=== PATIENT | male | born 1945 | race Caucasian/White ===

== ENCOUNTER 2020-06-22 18:37 | Inpatient (IN) ==
[2020-06-22 20:48] LABS: BASOPHILS # (AUTO) 0.1 X10^3/uL (0.0-0.1); BASOPHILS % (AUTO) 0.6 % (0.2-1.0); EOSINOPHILS % (AUTO) 0.2 % (0.9-2.9); HEMATOCRIT 43.6 % (42.0-54.0); HEMOGLOBIN 14.6 g/dL (13.5-18.0); LYMPHOCYTES # (AUTO) 0.5 X10^3/uL (1.3-2.9); LYMPHOCYTES % (AUTO) 6.6 % (21.0-51.0); MEAN CORPUSCULAR HGB CONC 33.6 g/dL (33.0-35.0); MEAN CORPUSCULAR VOLUME 83.4 fL (80.0-100.0); MEAN PLATELET VOLUME 7.8 fL (7.4-11.0); MONOCYTES # (AUTO) 0.6 x10^3/uL (0.3-0.8); MONOCYTES % (AUTO) 7.8 % (0.0-13.0); NEUTROPHILS # (AUTO) 6.9 x10^3/uL (2.2-4.8); NEUTROPHILS % (AUTO) 84.8 % (42.0-75.0); PLATELET COUNT 149 X10^3/uL (150.0-450.0); RED BLOOD COUNT 5.23 X10^6/uL (4.7-6.0); RED CELL DISTRIBUTION WIDTH 16.6 % (11.6-16.5); WHITE BLOOD COUNT 8.1 X10^3/uL (3.6-10.0)
[2020-06-22 21:18] VITALS: BMI 23.4
[2020-06-22 21:32] LABS: CALCIUM 8.4 mg/dL (8.5-10.1); CARBON DIOXIDE 26.8 mmol/L (21-32); COR CA(FOR HYPOALB) 9.2 mg/dL (8.5-10.1); CREATININE 1.53 mg/dL (0.70-1.30); TOTAL PROTEIN 7.5 g/dL (6.4-8.2)
--- NOTE | 2020-06-22 21:35 | RAD ---
HISTORYpre op for hip fractureSTUDYCHEST, 1 VIEWCOMPARISONNoneFINDINGSThe trachea is midline. The cardiac silhouette is unremarkable . The lungs demonstrate a right infrahilar opacity with some linear associated scarring versus subsegmental atelectasis. This would be better evaluated with a contrast chest CT to exclude underlying mass or adenopathy. The bony thorax is unremarkable.IMPRESSIONRight infrahilar opacity as above. Follow-up chest CT with contrast would be of benefit for further assessmentElectronically signed by: KIESHA ANNE (Jun 22, 2020 21:34:54)
[2020-06-22] MEDS ORDERED: PHARMACY CONSULT LTC MEDICATIONS XX SCH (22:00)
[2020-06-23] LABS: BILIRUBIN,URINE NEGATIVE (NEGATIVE); BLOOD/HEMOGLOBIN,URINE 3+ (NEGATIVE); GLUCOSE, URINE NEGATIVE (NEGATIVE); KETONES,URINE 1+ (NEGATIVE); LEUKOCYTE ESTERASE ,URINE NEGATIVE (NEGATIVE); NITRITES,URINE NEGATIVE (NEGATIVE); PROTEIN,URINE 3+ (NEGATIVE); UROBILINOGEN,URINE NORMAL (NORMAL)
[2020-06-23 00:05] LABS: APPEARANCE,URINE CLEAR (CLEAR); COLOR,URINE DARK YELLOW (YELLOW)
[2020-06-23 00:18] LABS: BACTERIA,URINE 1+ /HPF (NEGATIVE); GRANULAR CASTS,URINE FEW /LPF (NEGATIVE); RBC,URINE 0-2 /HPF (0-3); SQUAMOUS EPITHELIAL CELL,UR NEGATIVE /HPF (NEGATIVE)
[2020-06-23 00:19] LABS: MUCUS,URINE MODERATE /HPF (NEGATIVE)
[2020-06-23 06:53] LABS: BASOPHILS % (AUTO) 0.4 % (0.2-1.0); HEMATOCRIT 41.8 % (42.0-54.0); LYMPHOCYTES # (AUTO) 0.6 X10^3/uL (1.3-2.9); LYMPHOCYTES % (AUTO) 8.3 % (21.0-51.0); MEAN CORPUSCULAR HEMOGLOBIN 27.9 pg (27.0-34.0); MEAN CORPUSCULAR HGB CONC 33.4 g/dL (33.0-35.0); MEAN CORPUSCULAR VOLUME 83.6 fL (80.0-100.0); MEAN PLATELET VOLUME 7.9 fL (7.4-11.0); MONOCYTES # (AUTO) 0.6 x10^3/uL (0.3-0.8); MONOCYTES % (AUTO) 9.3 % (0.0-13.0); NEUTROPHILS # (AUTO) 5.5 x10^3/uL (2.2-4.8); PLATELET COUNT 138 X10^3/uL (150.0-450.0); RED BLOOD COUNT 5.01 X10^6/uL (4.7-6.0); RED CELL DISTRIBUTION WIDTH 16.6 % (11.6-16.5); WHITE BLOOD COUNT 6.7 X10^3/uL (3.6-10.0)
[2020-06-23 07:12] LABS: ALBUMIN 2.9 g/dL (3.4-5.0); CALCIUM 8.1 mg/dL (8.5-10.1); CARBON DIOXIDE 25.8 mmol/L (21-32); CREATININE 1.48 mg/dL (0.70-1.30); TOTAL PROTEIN 7.2 g/dL (6.4-8.2)
[2020-06-23 09:08] LABS: HEMOGLOBIN A1C 6.8 %
--- NOTE | 2020-06-23 09:13 | CT ---
HISTORY:Right hip fractureStudy: CT of the right hip without contrastComparison: NoneTechnique: Multiple axial images were obtained without administration of IV contrast. Sagittal and coronal reformats were performed and reviewed. Dose reduction techniques including Automated Exposure Control (AEC) and adjustment of mA and kV were utilized.Findings:There is a subcapital fracture of the right femoral neck mild impaction. Femoroacetabular alignment is normal without dislocation. The visualized pelvic ring is intact. There is a Lynn catheter in place with decompressed urinary bladder. Mild soft tissue swelling lateral to the right hip joint without fluid collection or hematoma. No aggressive osseous lesion identified to suggest a pathologic fracture.IMPRESSION:1. Subcapital right femoral neck fracture with mild impaction.Electronically signed by: LAURA VILLAGRAN (Jun 23, 2020 09:11:49)
[2020-06-23 09:14] LABS: CKMB % 0.5 % (<4); CREATINE KINASE 224 Units/L (39-308); CREATINE KINASE MB < 1.0 ng/mL (0-4.0); TROPONIN I < 0.02 ng/mL (0-1.5)
[2020-06-23] MEDS ORDERED: NS 250 ML IV 250 ML IV ONE ×2 (10:08→15:50)
[2020-06-23 10:11] LABS: ABG BASE EXCESS 1.6 mmol/L (-2.0-2.0); ABG HCO3 23.9 mmol/L (22-26)
[2020-06-23] MEDS: ZINC SULFATE PO SCH ×2 (10:22→21:29)
[2020-06-23] MEDS: VITAMIN C PO SCH ×2 (10:22→21:28)
[2020-06-23] MEDS: OFIRMEV IV PRN (10:22)
[2020-06-23] MEDS: PLAQUENIL PO SCH ×3 (10:23→21:28)
[2020-06-23 10:45] LABS: ABG ALLEN TEST POS
--- NOTE | 2020-06-23 13:31 | DR.H&P ---
H&P - History & Physical for Day of: H&P Date: 06/22/20 - Chief Complaint Chief Complaint: RIGHT HIP FRACTURE - History of Present Illness History of Present Illness: PT IS 74 WM DIRECT ADMIT FROM [facility] WITH CO FALL WITH ACUTE RIGHT HIP FRACTURE. PT CO PAIN, CT HIP ON ADMISSION CONFIRMED FRACTURE. PT ADMITTED FOR ORTHO SURGICAL CONSULTATION. - Past Medical History Past Medical History: Anxiety, Arthritis, Dementia, Depression, Diabetes, Hypertension - Past Surgical History Surgical History: Unknown - Social History Does patient currently use any type of tobacco product: No Have you used tobacco products in the last 12 months: No Type of Tobacco Use: None Does any household member use tobacco: No Alcohol Use: None Drug Use: None - Medications Home Medications: No Known Drug Allergies Allergy (Verified 06/22/20 20:27) CONTINUE taking the following medications ascorbic acid (vitamin C) 1,000 mg PO BID 06/22/20 [History] atorvastatin [Lipitor] 20 mg PO HS 06/22/20 [History] azithromycin [Zithromax] 500 mg PO DAILY 06/22/20 [History] donepezil [Aricept] 10 mg PO HS 06/22/20 [History] famotidine [Pepcid] 20 mg PO BID 06/22/20 [History] fexofenadine [Erin Allergy] 180 mg PO DAILY 06/22/20 [History] glimepiride [Amaryl] 2 mg PO DAILY 06/22/20 [History] hydroxychloroquine [Plaquenil] 200 mg PO BID 06/22/20 [History] medroxyprogesterone [Provera] 10 mg PO DAILY 06/22/20 [History] mirtazapine [Remeron] 15 mg PO HS 06/22/20 [History] quetiapine [Seroquel] 50 mg PO BID 06/22/20 [History] zinc sulfate 220 mg PO BID 06/22/20 [History] - Review of Systems Constitutional: Weakness ENT: No Symptoms Reported Respiratory: No Symptoms Reported Cardiovascular: No Symptoms Reported. denies: Edema Gastrointestinal: No Symptoms Reported Genitourinary: Incontinence Musculoskeletal: Leg Pain Skin: No Symptoms Reported Neurological: No Symptoms Reported, Confusion (STABLE DEMENTIA) - Physical Exam Vital Signs: Temperature 100.3 F Pulse Rate [Left Radial] 97 Respiratory Rate 20 Blood Pressure [Left Arm] 156/81 O2 Sat by Pulse Oximetry 93 Oriented: Person Eyes: Normal Ear: Normal Nose: Normal Throat: Dry Respiratory: RLL Diminished, LLL Diminished Cardiovascular: Normal. negative: Edema : Normal Auscultation: Bowel Sounds: Normal Palpation: Normal Tenderness: Normal Skin: Decreased Turgur Musculoskeletal: Right, Hip, Tender Psychiatric: Normal Mood Description: Flat Speech Pattern: Clear, Inappropriate - Assessment/Plan (1) Closed right hip fracture Status: Acute Plan: ADMIT, NPO. PAIN CONTROL. COVID 19 ON ADMISSION, CXR AND EKG ON ADMISSION. IV HYDRATION, RESP CONSULT. ORTHO CONSULT (2) COVID-19 Status: Acute (3) Dementia Status: Acute (4) Hypertension Status: Acute - Allergies Allergies/Adverse Reactions: Allergies Allergy/AdvReac Type Severity Reaction Status Date / Time No Known Drug Allergies Allergy Verified 06/22/20 20:27
[2020-06-23] MEDS: ZITHROMAX INJ 500 MG VIAL 500 MG in NS 250 ML IV 250 ML IV SCH (15:39)
[2020-06-23] MEDS: SNACK - Diabetic Appropriate PO SCH (20:25)
[2020-06-23] MEDS: LIPITOR TAB 20 MG PO SCH (21:28)
[2020-06-24 06:42] LABS: BASOPHILS % (AUTO) 0.2 % (0.2-1.0); EOSINOPHILS # (AUTO) 0.1 x10^3/uL (0.0-0.2); EOSINOPHILS % (AUTO) 1.6 % (0.9-2.9); HEMATOCRIT 40.8 % (42.0-54.0); HEMOGLOBIN 13.7 g/dL (13.5-18.0); LYMPHOCYTES # (AUTO) 0.9 X10^3/uL (1.3-2.9); LYMPHOCYTES % (AUTO) 15.2 % (21.0-51.0); MEAN CORPUSCULAR HEMOGLOBIN 28.1 pg (27.0-34.0); MEAN CORPUSCULAR HGB CONC 33.7 g/dL (33.0-35.0); MEAN CORPUSCULAR VOLUME 83.4 fL (80.0-100.0); MEAN PLATELET VOLUME 8.1 fL (7.4-11.0); MONOCYTES # (AUTO) 0.6 x10^3/uL (0.3-0.8); MONOCYTES % (AUTO) 9.3 % (0.0-13.0); NEUTROPHILS # (AUTO) 4.4 x10^3/uL (2.2-4.8); NEUTROPHILS % (AUTO) 73.7 % (42.0-75.0); PLATELET COUNT 149 X10^3/uL (150.0-450.0); RED BLOOD COUNT 4.89 X10^6/uL (4.7-6.0); WHITE BLOOD COUNT 5.9 X10^3/uL (3.6-10.0)
[2020-06-24 06:57] LABS: ALANINE AMINOTRANSFERASE 25 Units/L (12-78); ALBUMIN 2.7 g/dL (3.4-5.0); ALKALINE PHOSPHATASE 76 Units/L (46-116); ASPARTATE AMINO TRANSFERASE 36 Units/L (15-37); BLOOD UREA NITROGEN 28 mg/dL (7-18); CALCIUM 8.3 mg/dL (8.5-10.1); CARBON DIOXIDE 27.8 mmol/L (21-32); CHLORIDE 104 mmol/L (98-107); COR CA(FOR HYPOALB) 9.3 mg/dL (8.5-10.1); COR NA(FOR HYPERGLY) 143 mmol/L (136-145); CREATININE 1.29 mg/dL (0.70-1.30); SODIUM 142 mmol/L (136-145); eGFR NON BLACK RACES 58 (>60)
[2020-06-24] MEDS: VITAMIN C PO SCH ×2 (09:40→20:54)
[2020-06-24] MEDS: ZINC SULFATE PO SCH ×2 (09:40→20:55)
[2020-06-24] MEDS: ZITHROMAX INJ 500 MG VIAL 500 MG in NS 250 ML IV 250 ML IV SCH (09:40)
[2020-06-24] MEDS: PLAQUENIL PO SCH ×2 (09:41→20:53)
[2020-06-24] MEDS ORDERED: LR 1000 ML IV 1,000 ML IV ONE (11:23)
[2020-06-24] MEDS ORDERED: DIPRIVAN VIAL ONE (11:24)
[2020-06-24] MEDS ORDERED: XYLOCAINE 2 % (PLAIN) ONE (11:24)
[2020-06-24] MEDS ORDERED: KETALAR ONE (11:24)
[2020-06-24] MEDS ORDERED: VERSED ONE (11:24)
[2020-06-24] MEDS ORDERED: XYLOCAINE 1 % (PLAIN) ONE (11:42)
[2020-06-24] MEDS ORDERED: BETADINE SOLN ONE (12:32)
[2020-06-24] MEDS ORDERED: DILAUDID INJ IVP PRN (13:02)
[2020-06-24] MEDS ORDERED: ZOFRAN INJ 4 MG VIAL IVP PRN (13:02)
[2020-06-24] MEDS ORDERED: BENADRYL INJ 50 MG VIAL IVP PRN (13:02)
[2020-06-24] MEDS ORDERED: NS IRRIGATION* 1,000 ML ONE (15:04)
[2020-06-24] MEDS: OFIRMEV IV PRN ×2 (15:40→20:55)
[2020-06-24] MEDS ORDERED: ZOSYN VIAL 3.375 GRAMS 3.375 G in NS 100 ML IV + SPIKE MINIBAG* 100 ML IV ONE (17:18)
[2020-06-24] MEDS ORDERED: ZOSYN VIAL 3.375 GRAMS IV ONE (18:19)
[2020-06-24] MEDS ORDERED: NS 100 ML IV + SPIKE MINIBAG* 100 ML IV ONE (18:20)
[2020-06-24] MEDS: SNACK - Diabetic Appropriate PO SCH (20:51)
[2020-06-24] MEDS: LIPITOR TAB 20 MG PO SCH (20:52)
[2020-06-25] MEDS ORDERED: NS 250 ML IV 250 ML IV ONE (05:36)
[2020-06-25 05:40] LABS: ABG ALLEN TEST POS; ABG BASE EXCESS 2.2 mmol/L (-2.0-2.0); ABG HCO3 24.7 mmol/L (22-26)
[2020-06-25] MEDS: OFIRMEV IV PRN ×2 (05:40→21:25)
--- NOTE | 2020-06-25 05:43 | RAD ---
HISTORYPNEUMONIASTUDYCHEST, 1 [id number]/24/2020FINDINGSThe trachea is midline. The cardiac silhouette is unremarkable. Right infrahilar opacity unchanged. There is now increased opacity within the right upper lobe. The left lung is clear. No pleural effusion or pneumothorax. The bony thorax is unremarkable.IMPRESSIONRight upper lobe infiltrate new from previous 06/22/2020.Right infrahilar opacity, unchangedElectronically signed by: Luke Patel (Jun 25, 2020 05:41:48)
[2020-06-25 06:31] LABS: BASOPHILS % (AUTO) 0.2 % (0.2-1.0); EOSINOPHILS % (AUTO) 0.1 % (0.9-2.9); HEMATOCRIT 37.7 % (42.0-54.0); HEMOGLOBIN 12.6 g/dL (13.5-18.0); LYMPHOCYTES # (AUTO) 0.6 X10^3/uL (1.3-2.9); LYMPHOCYTES % (AUTO) 9.2 % (21.0-51.0); MEAN CORPUSCULAR HEMOGLOBIN 27.7 pg (27.0-34.0); MEAN CORPUSCULAR HGB CONC 33.5 g/dL (33.0-35.0); MEAN CORPUSCULAR VOLUME 82.9 fL (80.0-100.0); MEAN PLATELET VOLUME 8.3 fL (7.4-11.0); MONOCYTES # (AUTO) 0.4 x10^3/uL (0.3-0.8); MONOCYTES % (AUTO) 6.1 % (0.0-13.0); NEUTROPHILS # (AUTO) 5.3 x10^3/uL (2.2-4.8); NEUTROPHILS % (AUTO) 84.4 % (42.0-75.0); PLATELET COUNT 179 X10^3/uL (150.0-450.0); RED BLOOD COUNT 4.54 X10^6/uL (4.7-6.0); RED CELL DISTRIBUTION WIDTH 16.8 % (11.6-16.5); WHITE BLOOD COUNT 6.3 X10^3/uL (3.6-10.0)
[2020-06-25 06:45] LABS: ALANINE AMINOTRANSFERASE 22 Units/L (12-78); ALBUMIN 2.6 g/dL (3.4-5.0); ALKALINE PHOSPHATASE 71 Units/L (46-116); ASPARTATE AMINO TRANSFERASE 30 Units/L (15-37); BLOOD UREA NITROGEN 22 mg/dL (7-18); CARBON DIOXIDE 23.4 mmol/L (21-32); CHLORIDE 106 mmol/L (98-107); COR CA(FOR HYPOALB) 9.1 mg/dL (8.5-10.1); COR NA(FOR HYPERGLY) 141 mmol/L (136-145); CREATININE 1.18 mg/dL (0.70-1.30); SODIUM 140 mmol/L (136-145); TOTAL PROTEIN 6.5 g/dL (6.4-8.2); eGFR NON BLACK RACES > 60 (>60)
[2020-06-25] MEDS ORDERED: REMDESIVIR (INVESTIGATIONAL DRUG GS-5734) 200 MG in NS 250 ML IV 250 ML IV NR (09:00)
[2020-06-25] MEDS: LOVENOX INJ 40 MG SYR SC SCH (10:20)
[2020-06-25] MEDS: ZINC SULFATE PO SCH ×2 (10:22→21:30)
[2020-06-25] MEDS: VITAMIN C PO SCH ×2 (10:22→21:30)
[2020-06-25] MEDS: PLAQUENIL PO SCH ×2 (10:23→21:30)
[2020-06-25] MEDS: ZITHROMAX INJ 500 MG VIAL 500 MG in NS 250 ML IV 250 ML IV SCH (10:38)
[2020-06-25] MEDS ORDERED: PROVENTIL NEB TX 0.083% 2.5MG/ 3ML NEB PRN (14:45)
[2020-06-25] MEDS ORDERED: PROVENTIL NEB TX 0.083% 2.5MG/ 3ML ONE (14:50)
[2020-06-25] MEDS ORDERED: MORPHINE SULFATE INJ 2 MG INJ ONE (17:36)
[2020-06-25] MEDS: MORPHINE SULFATE INJ 2 MG INJ IVP PRN (17:40)
[2020-06-25] MEDS: LIPITOR TAB 20 MG PO SCH (21:30)
[2020-06-25] MEDS: PROVENTIL NEB TX 0.083% 2.5MG/ 3ML NEB SCH (21:30)
[2020-06-25] MEDS: SNACK - Diabetic Appropriate PO SCH (21:30)
[2020-06-25] MEDS: NORCO 5/325 MG TAB PO PRN (21:32)
[2020-06-26 06:25] LABS: BASOPHILS % (AUTO) 0.4 % (0.2-1.0); EOSINOPHILS % (AUTO) 0.4 % (0.9-2.9); HEMATOCRIT 39.2 % (42.0-54.0); HEMOGLOBIN 13.1 g/dL (13.5-18.0); LYMPHOCYTES # (AUTO) 0.9 X10^3/uL (1.3-2.9); LYMPHOCYTES % (AUTO) 10.2 % (21.0-51.0); MEAN CORPUSCULAR HGB CONC 33.3 g/dL (33.0-35.0); MEAN CORPUSCULAR VOLUME 84.1 fL (80.0-100.0); MEAN PLATELET VOLUME 8.3 fL (7.4-11.0); MONOCYTES # (AUTO) 0.5 x10^3/uL (0.3-0.8); MONOCYTES % (AUTO) 5.6 % (0.0-13.0); NEUTROPHILS # (AUTO) 7.5 x10^3/uL (2.2-4.8); NEUTROPHILS % (AUTO) 83.4 % (42.0-75.0); PLATELET COUNT 191 X10^3/uL (150.0-450.0); RED BLOOD COUNT 4.66 X10^6/uL (4.7-6.0); RED CELL DISTRIBUTION WIDTH 16.7 % (11.6-16.5)
[2020-06-26 06:34] LABS: ALANINE AMINOTRANSFERASE 16 Units/L (12-78); ALBUMIN 2.5 g/dL (3.4-5.0); ALKALINE PHOSPHATASE 69 Units/L (46-116); ASPARTATE AMINO TRANSFERASE 37 Units/L (15-37); BLOOD UREA NITROGEN 21 mg/dL (7-18); CALCIUM 8.3 mg/dL (8.5-10.1); CARBON DIOXIDE 26.9 mmol/L (21-32); CHLORIDE 108 mmol/L (98-107); COR CA(FOR HYPOALB) 9.5 mg/dL (8.5-10.1); COR NA(FOR HYPERGLY) 145 mmol/L (136-145); CREATININE 1.23 mg/dL (0.70-1.30); SODIUM 144 mmol/L (136-145); TOTAL PROTEIN 6.8 g/dL (6.4-8.2); eGFR NON BLACK RACES > 60 (>60)
[2020-06-26] MEDS: MORPHINE SULFATE INJ 2 MG INJ IVP PRN (06:35)
[2020-06-26] MEDS: LOVENOX INJ 40 MG SYR SC SCH (06:35)
[2020-06-26] MEDS: OFIRMEV IV PRN ×2 (06:37→17:57)
[2020-06-26] MEDS: PROVENTIL NEB TX 0.083% 2.5MG/ 3ML NEB SCH ×4 (09:15→21:03)
[2020-06-26] MEDS: VITAMIN C PO SCH ×2 (09:30→20:45)
[2020-06-26] MEDS: PLAQUENIL PO SCH ×2 (09:30→20:45)
[2020-06-26] MEDS: ZITHROMAX INJ 500 MG VIAL 500 MG in NS 250 ML IV 250 ML IV SCH (09:30)
[2020-06-26] MEDS: REMDESIVIR (INVESTIGATIONAL DRUG GS-5734) 100 MG in NS 250 ML IV 250 ML IV SCH (09:30)
[2020-06-26] MEDS: ZINC SULFATE PO SCH ×2 (09:30→20:45)
[2020-06-26 10:44] LABS: ABG BASE EXCESS 2.2 mmol/L (-2.0-2.0); ABG HCO3 26.5 mmol/L (22-26)
[2020-06-26] MEDS: PEPCID TAB 20 MG PO SCH ×2 (11:50→20:45)
[2020-06-26] MEDS: SEROquel TAB 25 mg PO SCH ×2 (11:50→20:45)
[2020-06-26] MEDS: PROTONIX INJ 40 MG VIAL IVP SCH (11:50)
[2020-06-26] MEDS ORDERED: ARICEPT TAB 10 MG ONE (19:22)
[2020-06-26] MEDS: ARICEPT TAB 10 MG PO SCH (20:45)
[2020-06-26] MEDS: LIPITOR TAB 20 MG PO SCH (20:45)
[2020-06-26] MEDS: SNACK - Diabetic Appropriate PO SCH (22:48)
[2020-06-27 00:22] LABS: BILIRUBIN,URINE NEGATIVE (NEGATIVE); BLOOD/HEMOGLOBIN,URINE 5+ (NEGATIVE); GLUCOSE, URINE NEGATIVE (NEGATIVE); KETONES,URINE 3+ (NEGATIVE); LEUKOCYTE ESTERASE ,URINE 1+ (NEGATIVE); NITRITES,URINE NEGATIVE (NEGATIVE); PROTEIN,URINE 3+ (NEGATIVE); UROBILINOGEN,URINE NORMAL (NORMAL)
[2020-06-27 00:42] LABS: APPEARANCE,URINE CLEAR (CLEAR); COLOR,URINE YELLOW (YELLOW); RBC,URINE 30-50 /HPF (0-3)
[2020-06-27 00:43] LABS: BACTERIA,URINE 2+ /HPF (NEGATIVE); SQUAMOUS EPITHELIAL CELL,UR RARE /HPF (NEGATIVE)
[2020-06-27 05:33] LABS: BASOPHILS % (AUTO) 0.2 % (0.2-1.0); EOSINOPHILS % (AUTO) 0.4 % (0.9-2.9); LYMPHOCYTES # (AUTO) 1.1 X10^3/uL (1.3-2.9); LYMPHOCYTES % (AUTO) 13.1 % (21.0-51.0); MEAN CORPUSCULAR HGB CONC 33.4 g/dL (33.0-35.0); MEAN CORPUSCULAR VOLUME 83.8 fL (80.0-100.0); MEAN PLATELET VOLUME 8.7 fL (7.4-11.0); MONOCYTES # (AUTO) 0.5 x10^3/uL (0.3-0.8); MONOCYTES % (AUTO) 6.3 % (0.0-13.0); NEUTROPHILS # (AUTO) 6.7 x10^3/uL (2.2-4.8); PLATELET COUNT 231 X10^3/uL (150.0-450.0); RED CELL DISTRIBUTION WIDTH 17.3 % (11.6-16.5); WHITE BLOOD COUNT 8.4 X10^3/uL (3.6-10.0)
[2020-06-27 05:46] LABS: ALANINE AMINOTRANSFERASE 16 Units/L (12-78); ALBUMIN 2.3 g/dL (3.4-5.0); ALKALINE PHOSPHATASE 64 Units/L (46-116); ASPARTATE AMINO TRANSFERASE 35 Units/L (15-37); BLOOD UREA NITROGEN 24 mg/dL (7-18); CALCIUM 8.1 mg/dL (8.5-10.1); CARBON DIOXIDE 28.3 mmol/L (21-32); CHLORIDE 111 mmol/L (98-107); COR CA(FOR HYPOALB) 9.5 mg/dL (8.5-10.1); COR NA(FOR HYPERGLY) 148 mmol/L (136-145); CREATININE 1.09 mg/dL (0.70-1.30); SODIUM 146 mmol/L (136-145); TOTAL PROTEIN 6.3 g/dL (6.4-8.2); eGFR NON BLACK RACES > 60 (>60)
[2020-06-27] MEDS: LOVENOX INJ 40 MG SYR SC SCH (06:32)
[2020-06-27] MEDS ORDERED: MICRO K EXTEN CAP 10 MEQ PO PRN (06:42)
[2020-06-27] MEDS ORDERED: POTASSIUM CHL 40 MEQ/NS 0.45% 500 ML IV PRN (06:42)
[2020-06-27] MEDS ORDERED: K-RIDER 10 MEQ/NS 100 ML 10 MEQ/100 ML BAG IV PRN (06:42)
[2020-06-27] MEDS ORDERED: K-DUR TAB 20 MEQ PO PRN (06:42)
[2020-06-27] MEDS ORDERED: KLOR-CON PO PRN (06:42)
[2020-06-27] MEDS ORDERED: POTASSIUM CHLORIDE LIQ 20 MEQ UDC PO PRN (06:42)
[2020-06-27] MEDS ORDERED: POTASSIUM CHL 60 MEQ/NS 0.45% 500 ML IV PRN (06:42)
[2020-06-27] MEDS ORDERED: KLOR-CON ONE (07:20)
[2020-06-27] MEDS: ZINC SULFATE PO SCH ×2 (08:37→21:20)
[2020-06-27] MEDS: SEROquel TAB 25 mg PO SCH ×2 (08:38→21:19)
[2020-06-27] MEDS: PLAQUENIL PO SCH ×2 (08:38→21:21)
[2020-06-27] MEDS: ZITHROMAX INJ 500 MG VIAL 500 MG in NS 250 ML IV 250 ML IV SCH (08:38)
[2020-06-27] MEDS: REMDESIVIR (INVESTIGATIONAL DRUG GS-5734) 100 MG in NS 250 ML IV 250 ML IV SCH (08:38)
[2020-06-27] MEDS: VITAMIN C PO SCH ×2 (08:38→21:21)
[2020-06-27] MEDS: PROTONIX INJ 40 MG VIAL IVP SCH (08:39)
[2020-06-27] MEDS: PEPCID TAB 20 MG PO SCH ×2 (08:39→21:21)
[2020-06-27] MEDS: PROVENTIL NEB TX 0.083% 2.5MG/ 3ML NEB SCH ×4 (09:05→21:15)
[2020-06-27] MEDS ORDERED: NS 1/2 1000 ML IV 1,000 ML IV ONE (13:33)
[2020-06-27] MEDS: NS 1/2 1000 ML IV 1,000 ML IV SCH (16:02)
[2020-06-27] MEDS: NORCO 5/325 MG TAB PO PRN (18:25)
[2020-06-27] MEDS ORDERED: SEROquel TAB 25 mg PO ONE (19:49)
[2020-06-27] MEDS: SNACK - Diabetic Appropriate PO SCH (20:11)
[2020-06-27] MEDS: LIPITOR TAB 20 MG PO SCH (21:21)
[2020-06-27] MEDS: ARICEPT TAB 10 MG PO SCH (21:21)
[2020-06-28 06:13] LABS: BASOPHILS % (AUTO) 0.3 % (0.2-1.0); EOSINOPHILS # (AUTO) 0.2 x10^3/uL (0.0-0.2); EOSINOPHILS % (AUTO) 1.6 % (0.9-2.9); HEMATOCRIT 35.8 % (42.0-54.0); HEMOGLOBIN 12.1 g/dL (13.5-18.0); LYMPHOCYTES # (AUTO) 0.7 X10^3/uL (1.3-2.9); MEAN CORPUSCULAR HGB CONC 33.9 g/dL (33.0-35.0); MEAN CORPUSCULAR VOLUME 85.6 fL (80.0-100.0); MEAN PLATELET VOLUME 8.8 fL (7.4-11.0); MONOCYTES # (AUTO) 0.4 x10^3/uL (0.3-0.8); NEUTROPHILS % (AUTO) 87.1 % (42.0-75.0); PLATELET COUNT 288 X10^3/uL (150.0-450.0); RED BLOOD COUNT 4.18 X10^6/uL (4.7-6.0); RED CELL DISTRIBUTION WIDTH 16.9 % (11.6-16.5); WHITE BLOOD COUNT 10.3 X10^3/uL (3.6-10.0)
[2020-06-28 06:21] LABS: ALANINE AMINOTRANSFERASE 18 Units/L (12-78); ALBUMIN 2.4 g/dL (3.4-5.0); ALKALINE PHOSPHATASE 72 Units/L (46-116); ASPARTATE AMINO TRANSFERASE 35 Units/L (15-37); BLOOD UREA NITROGEN 25 mg/dL (7-18); CALCIUM 8.2 mg/dL (8.5-10.1); CARBON DIOXIDE 27.3 mmol/L (21-32); CHLORIDE 113 mmol/L (98-107); COR CA(FOR HYPOALB) 9.5 mg/dL (8.5-10.1); COR NA(FOR HYPERGLY) 151 mmol/L (136-145); CREATININE 1.09 mg/dL (0.70-1.30); SODIUM 149 mmol/L (136-145); TOTAL PROTEIN 6.4 g/dL (6.4-8.2); eGFR NON BLACK RACES > 60 (>60)
[2020-06-28] MEDS: LOVENOX INJ 40 MG SYR SC SCH (06:24)
[2020-06-28] MEDS: HumuLIN R SUBCUT PRN (06:25)
[2020-06-28] MEDS: ZITHROMAX INJ 500 MG VIAL 500 MG in NS 250 ML IV 250 ML IV SCH (08:50)
[2020-06-28] MEDS: PROTONIX INJ 40 MG VIAL IVP SCH (08:53)
[2020-06-28] MEDS: VITAMIN C PO SCH ×2 (08:53→20:41)
[2020-06-28] MEDS: PEPCID TAB 20 MG PO SCH ×2 (08:53→20:40)
[2020-06-28] MEDS: PLAQUENIL PO SCH ×2 (08:53→20:40)
[2020-06-28] MEDS: ZINC SULFATE PO SCH ×2 (08:54→20:41)
[2020-06-28] MEDS: PROVENTIL NEB TX 0.083% 2.5MG/ 3ML NEB SCH ×3 (09:00→21:39)
[2020-06-28] MEDS: REMDESIVIR (INVESTIGATIONAL DRUG GS-5734) 100 MG in NS 250 ML IV 250 ML IV SCH (11:05)
[2020-06-28] MEDS: OFIRMEV IV PRN (20:12)
[2020-06-28] MEDS: NS 1/2 1000 ML IV 1,000 ML IV SCH (20:38)
[2020-06-28] MEDS: SNACK - Diabetic Appropriate PO SCH (20:38)
[2020-06-28] MEDS: ARICEPT TAB 10 MG PO SCH (20:39)
[2020-06-28] MEDS: LIPITOR TAB 20 MG PO SCH (20:39)
[2020-06-28] MEDS: SEROquel TAB 25 mg PO SCH (20:41)
[2020-06-28 21:38] LABS: ABG ALLEN TEST POS; ABG BASE EXCESS -2.3 mmol/L (-2.0-2.0); ABG HCO3 19.2 mmol/L (22-26)
[2020-06-28 22:13] LABS: CKMB % 0.7 % (<4); CREATINE KINASE MB 1.1 ng/mL (0-4.0); TROPONIN I 0.2 ng/mL (0-1.5)
[2020-06-28] MEDS: ZOSYN VIAL 4.5 GRAMS 4.5 G in NS 100 ML IV + SPIKE MINIBAG* 100 ML IV SCH ×2 (22:17)
[2020-06-29] MEDS ORDERED: LOPRESSOR INJ 5 MG AMP IVP ONE (01:32)
[2020-06-29] MEDS ORDERED: LOPRESSOR INJ 5 MG AMP ONE (01:40)
[2020-06-29 01:42] LABS: ABG BASE EXCESS -2.9 mmol/L (-2.0-2.0); ABG HCO3 18.7 mmol/L (22-26)
--- NOTE | 2020-06-29 01:45 | RAD ---
STUDY: FRONTAL VIEW CHESTCOMPARISON: June 28, 2020HISTORY: INFILTRATEFINDINGS:Elevation the right hemidiaphragm is notedSubsegmental atelectasis is noted.No focal consolidation is seen.The heart size is within normal limits.The mediastinum is unremarkable.There is no evidence of pleural effusion or gross pneumothorax.The trachea is midline.IMPRESSION:1. No focal consolidation is seen.2. The heart size is normal.Electronically signed by: Isac Knight (Jun 29, 2020 01:44:37)
[2020-06-29] MEDS ORDERED: NS 100 ML IV 100 ML IV ONE ×2 (01:53→08:37)
--- NOTE | 2020-06-29 03:20 | CT ---
STUDY: CTA CHEST WITH IV CONTRASTCOMPARISON: NoneTECHNIQUE: axial images were acquired of the chest with IV contrast for a CT angiogram. Coronal and sagittal images were provided. All images were reviewed in a variety of windows and levels. 3D 8 mm thick MIPS images were provided.RADIATION REDUCTION TECHNIQUE: Automated exposure control, Adjustment of the mA and/or kV according to patient size, or iterative reconstruction techniques were used. 8 mm thick axial MIPS images were provided.HISTORY: Unresponsive, tachy, r/o clotFINDINGS:CHEST: Exam is limited by motion which causes stepladder artifact.THYROID GLANDS: The thyroid gland is unremarkable.HEART AND VESSELS: The heart size is within normal limits.There is no evidence of pericardial effusion. Thoracic aorta is normal size without evidence of an aneurysm or dissection.Main pulmonary artery size is within normal limits.Exam is positive bilateral lower lobe pulmonary emboli. Exam is also positive for pulmonary embolism of the right middle lobe and right upper lobe.LYMPH NODES: There is no evidence of axillary, mediastinal, or hilar lymphadenopathy.AIRWAY: The trachea and mainstem bronchi are patent.No intraluminal lesions are seen.LUNGS: Scattered areas of ground-glass opacities are seen involving the right upper lobe, right lower lobe, and left lower lobe involving the subpleural surface and adjacent to the fissures. There is no pleural effusion. No evidence of pneumothorax. No focal consolidation is seen.ESOPHAGUS: The esophagus is grossly unremarkable.BONES: The visualized bones demonstrate degenerative changes. There are no concerning lytic or blastic lesions identified.UPPER ABDOMINAL STRUCTURES: The visualized upper abdominal structures are unremarkable.IMPRESSSION:1. Exam is positive for pulmonary embolism involving the right upper lobe, right middle lobe, right lower lobe, and left lower lobe.2. Scattered areas of ground-glass opacities involving the right upper lobe, right lower lobe, and left lower lobe are seen. This could represent an infectious process. The above findings demonstrate COMMON CT imaging features of COVID-19 pneumonia. However, differential diagnosis should include, but is not limited to, influenza pneumonia, organizing pneumonia, or possible drug toxicity. Clinical correlation with laboratory viral testing may be obtained as clinically indicated. Reference: Saurabh et al. Radiology. 2020Electronically signed by: Isac Knight (Jun 29, 2020 03:19:59)
[2020-06-29 03:45] LABS: BASOPHILS % (AUTO) 0.2 % (0.2-1.0); HEMATOCRIT 44.2 % (42.0-54.0); HEMOGLOBIN 14.7 g/dL (13.5-18.0); LYMPHOCYTES # (AUTO) 0.4 X10^3/uL (1.3-2.9); LYMPHOCYTES % (AUTO) 5.2 % (21.0-51.0); MEAN CORPUSCULAR HEMOGLOBIN 28.4 pg (27.0-34.0); MEAN CORPUSCULAR HGB CONC 33.3 g/dL (33.0-35.0); MEAN CORPUSCULAR VOLUME 85.1 fL (80.0-100.0); MEAN PLATELET VOLUME 8.2 fL (7.4-11.0); MONOCYTES # (AUTO) 0.4 x10^3/uL (0.3-0.8); MONOCYTES % (AUTO) 4.6 % (0.0-13.0); NEUTROPHILS # (AUTO) 7.7 x10^3/uL (2.2-4.8); PLATELET COUNT 412 X10^3/uL (150.0-450.0); RED BLOOD COUNT 5.19 X10^6/uL (4.7-6.0); RED CELL DISTRIBUTION WIDTH 17.6 % (11.6-16.5); WHITE BLOOD COUNT 8.6 X10^3/uL (3.6-10.0)
[2020-06-29] MEDS ORDERED: HEPARIN SODIUM IN D5W 25,000 UNITS/500 ML BAG IV PRN (03:47)
[2020-06-29] MEDS: OFIRMEV IV PRN (04:15)
[2020-06-29 04:20] LABS: ALBUMIN 2.4 g/dL (3.4-5.0); CALCIUM 8.1 mg/dL (8.5-10.1); CARBON DIOXIDE 23.4 mmol/L (21-32); COR CA(FOR HYPOALB) 9.4 mg/dL (8.5-10.1); CREATININE 3.01 mg/dL (0.70-1.30); TROPONIN I 0.35 ng/mL (0-1.5)
[2020-06-29] MEDS ORDERED: HEPARIN SODIUM IN D5W 25,000 UNITS/500 ML BAG IV ONE (04:21)
[2020-06-29 04:24] LABS: CKMB % 0.5 % (<4); CREATINE KINASE MB 7.4 ng/mL (0-4.0)
[2020-06-29] MEDS ORDERED: HEPARIN SODIUM INJ 5000 UNITS ONE ×3 (04:37→04:49)
[2020-06-29] MEDS: ZOSYN VIAL 4.5 GRAMS 4.5 G in NS 100 ML IV + SPIKE MINIBAG* 100 ML IV SCH (05:24)
[2020-06-29] MEDS: HumuLIN R SUBCUT PRN (06:11)
--- NOTE | 2020-06-29 09:46 | DR.CA ---
HPI PCP Primary Care Physician: SPARKLE COVID-19 Coronavirus risk:travel/contact w/high risk person: Yes Has patient experienced Coronavirus symptoms: Yes Coronavirus symptoms experienced: Coughing PMH PMH Past Medical History: Anxiety, Arthritis, Dementia, Depression, Diabetes and Hypertension Past Surgical History: No Surgical History: Unknown Social History Does patient currently use any type of tobacco product: No Have you used tobacco products in the last 12 months: No Type of Tobacco Use: None Does any household member use tobacco: No Alcohol Use: None Lives With: Alone Lives Where: [facility] Travel Risk Coronavirus risk:travel/contact w/high risk person: Yes Has patient experienced Coronavirus symptoms: Yes Coronavirus symptoms experienced: Coughing Infectious screening Have you traveled outside the country in the last 6 months?: No Isolation: Droplet PE Vitals Vital Signs: Temp Pulse Pulse Resp BP BP BP 06/29/20 04:50 100.6 F H 124 H 42 H 151/67 06/29/20 04:00 104 F H 125 H 48 H 138/86 06/29/20 01:58 209/72 06/29/20 00:00 100.6 F H 137 H 41 H 180/96 06/28/20 20:00 103.6 F H 142 H 40 H 111/72 06/28/20 16:00 99.2 F 125 H 26 H 107/78 06/28/20 12:00 100.3 F H 115 H 24 128/87 06/28/20 08:00 98.3 F 112 H 20 141/80 06/28/20 04:00 99.1 F 104 H 20 108/80 06/28/20 00:00 99.6 F 107 H 20 128/87 06/27/20 21:15 113 H 06/27/20 20:00 98.0 F 109 H 22 121/85 06/27/20 19:25 20 06/27/20 18:25 18 06/27/20 17:30 78 06/27/20 16:00 98.2 F 100 H 22 175/79 06/27/20 12:45 96 H 06/27/20 12:00 98.9 F 96 H 18 178/86 06/27/20 09:05 101 H 06/27/20 07:52 99.4 F 105 H 18 170/88 08/29/20 04:00 99.4 F 103 H 22 170/73 06/27/20 02:49 99.5 F 06/27/20 00:00 100.9 F H 113 H 21 182/84 06/26/20 21:03 110 H 06/26/20 20:50 99.7 F H 06/26/20 20:00 100.3 F H 107 H 20 138/79 06/26/20 17:57 101.4 F H 06/26/20 16:40 116 H 06/26/20 16:00 100.6 F H 106 H 20 139/70 06/26/20 12:10 95 H 06/26/20 12:00 99.0 F 96 H 20 169/79 06/26/20 09:15 83 06/26/20 08:00 98.9 F 83 20 152/74 06/26/20 07:05 18 06/26/20 06:35 18 06/26/20 06:30 101.6 F H 06/26/20 04:00 100.1 F H 100 H 23 161/73 06/26/20 00:00 99.3 F 104 H 24 176/77 06/25/20 22:32 22 06/25/20 21:32 22 06/25/20 21:30 90 06/25/20 20:00 101.7 F H 108 H 20 190/86 06/25/20 18:10 18 06/25/20 17:40 22 06/25/20 17:00 99.1 F 06/25/20 16:00 101.5 F H 86 20 187/96 06/25/20 14:55 109 H 06/25/20 12:00 99 F 102 H 20 150/74 06/25/20 10:49 105 H 174/96 06/25/20 09:45 105 H 06/25/20 08:00 100 F H 90 20 168/79 06/25/20 06:53 99.1 F 06/25/20 05:38 102.2 F H 06/25/20 04:00 98.5 F 98 H 18 151/69 06/25/20 00:00 99.5 F 98 H 20 167/80 06/24/20 20:00 100.3 F H 108 H 18 168/84 06/24/20 18:30 99.4 F 98 H 20 144/68 08/26/20 17:48 102.0 F H 20 174/96 06/24/20 17:30 95 H 20 147/66 06/24/20 16:30 100.6 F H 98 H 20 161/74 06/24/20 15:30 102.0 F H 104 H 20 194/86 06/24/20 14:30 101.9 F H 102 H 20 170/77 06/24/20 14:15 107 H 20 151/77 06/24/20 14:00 100 H 22 158/77 06/24/20 13:45 99.5 F 103 H 20 163/79 06/24/20 13:30 101.0 F H 100 H 18 150/86 06/24/20 13:21 97.4 F L 100 H 20 174/96 06/24/20 13:15 97.4 F L 100 H 20 170/95 06/24/20 13:10 97.4 F L 100 H 22 169/90 06/24/20 13:05 97.4 F L 97 H 22 171/98 06/24/20 13:00 97.4 F L 97 H 22 181/90 06/24/20 12:55 97.4 F L 100 H 22 186/96 06/24/20 12:50 97.4 F L 94 H 24 155/82 06/24/20 08:00 99.5 F 97 H 20 151/97 06/24/20 04:00 99.6 F 93 H 20 121/59 06/23/20 23:29 99.5 F 92 H 20 143/77 06/23/20 20:00 98.5 F 86 20 172/60 06/23/20 16:00 98.3 F 88 20 148/75 06/23/20 12:00 100.3 F H 97 H 20 156/81 06/23/20 08:00 101.4 F H 91 H 20 135/83 06/23/20 03:54 99.5 F 107 H 24 161/77 06/23/20 00:00 98.5 F 114 H 24 181/84 Pulse Ox 06/29/20 04:50 94 L 06/29/20 04:00 89 L 06/29/20 01:58 06/29/20 00:00 92 L 06/28/20 20:00 91 L 06/28/20 16:00 96 06/28/20 12:00 95 06/28/20 08:00 93 L 06/28/20 04:00 91 L 06/28/20 00:00 94 L 06/27/20 21:15 97 06/27/20 20:00 94 L 06/27/20 19:25 06/27/20 18:25 06/27/20 17:30 96 06/27/20 16:00 93 L 06/27/20 12:45 96 06/27/20 12:00 96 06/27/20 09:05 95 06/27/20 07:52 93 L 06/27/20 04:00 93 L 06/27/20 02:49 06/27/20 00:00 96 06/26/20 21:03 98 06/26/20 20:50 06/26/20 20:00 91 L 06/26/20 17:57 06/26/20 16:40 95 06/26/20 16:00 96 06/26/20 12:10 95 06/26/20 12:00 95 06/26/20 09:15 96 06/26/20 08:00 96 06/26/20 07:05 06/26/20 06:35 06/26/20 06:30 06/26/20 04:00 96 06/26/20 00:00 95 06/25/20 22:32 06/25/20 21:32 06/25/20 21:30 95 06/25/20 20:00 100 06/25/20 18:10 06/25/20 17:40 06/25/20 17:00 06/25/20 16:00 95 06/25/20 14:55 95 06/25/20 12:00 95 06/25/20 10:49 94 L 06/25/20 09:45 94 L 06/25/20 08:00 99 06/25/20 06:53 06/25/20 05:38 06/25/20 04:00 99 06/25/20 00:00 94 L 06/24/20 20:00 95 06/24/20 18:30 94 L 06/24/20 17:48 94 L 06/24/20 17:30 93 L 06/24/20 16:30 93 L 06/24/20 15:30 94 L 06/24/20 14:30 94 L 06/24/20 14:15 93 L 06/24/20 14:00 93 L 06/24/20 13:45 94 L 06/24/20 13:30 93 L 06/24/20 13:21 97 06/24/20 13:15 97 06/24/20 13:10 98 06/24/20 13:05 98 06/24/20 13:00 99 06/24/20 12:55 98 06/24/20 12:50 06/24/20 08:00 93 L 06/24/20 04:00 94 L 06/23/20 23:29 93 L 06/23/20 20:00 95 06/23/20 16:00 95 06/23/20 12:00 93 L 06/23/20 08:00 99 06/23/20 03:54 95 06/23/20 00:00 94 L COURSE Treatment Treatment: 804: called to code Blue on this patient. On arrival CPR in progress and he had received Epi and atropine for asystole. Hx of hip fx with ORIF, Covid19 Positive and last night PE found on CT scan. Cpr continued epi repeated, Sodium bicarb ordered and Amiodorone. Patient had return of pulse briefly after 3rd epi but stopped after a few moments. Code halted at 08:43 ROR Labs Reviewed Result Diagrams: 06/29/20 03:31 06/29/20 03:31 Laboratory: 06/26/20 23:45 Urine,Catheterized Urine Culture - Final Klebsiella Pneumoniae 06/23/20 08:25 Blood Blood Culture - Final 06/23/20 08:35 Blood Blood Culture - Final 06/22/20 23:40 Urine,Clean Catch Urine Culture - Final WBC 8.6 X10^3/uL (3.6-10.0) 06/29/20 03:31 RBC 5.19 X10^6/uL (4.7-6.0) 06/29/20 03:31 Hgb 14.7 g/dL (13.5-18.0) D 06/29/20 03:31 Hct 44.2 % (42.0-54.0) 06/29/20 03:31 MCV 85.1 fL (80.0-100.0) 06/29/20 03:31 MCH 28.4 pg (27.0-34.0) 06/29/20 03:31 MCHC 33.3 g/dL (33.0-35.0) 06/29/20 03:31 RDW 17.6 % (11.6-16.5) H 06/29/20 03:31 Plt Count 412 X10^3/uL (150.0-450.0) 06/29/20 03:31 MPV 8.2 fL (7.4-11.0) 06/29/20 03:31 Neut % (Auto) 90.0 % (42.0-75.0) H 06/29/20 03:31 Lymph % (Auto) 5.2 % (21.0-51.0) L 06/29/20 03:31 [place] % (Auto) 4.6 % (0.0-13.0) 06/29/20 03:31 Eos % (Auto) 0.0 % (0.9-2.9) L 06/29/20 03:31 Baso % (Auto) 0.2 % (0.2-1.0) 06/29/20 03:31 Neut # (Auto) 7.7 x10^3/uL (2.2-4.8) H 06/29/20 03:31 Lymph # (Auto) 0.4 X10^3/uL (1.3-2.9) L 06/29/20 03:31 [place] # (Auto) 0.4 x10^3/uL (0.3-0.8) 06/29/20 03:31 Eos # (Auto) 0.0 x10^3/uL (0.0-0.2) 06/29/20 03:31 Baso # (Auto) 0.0 X10^3/uL (0.0-0.1) 06/29/20 03:31 Absolute Nucleated RBC 0.3 /100WBC 06/29/20 03:31 PT 18.4 SECONDS (11.8-14.3) 06/29/20 03:31 INR Target Range - 06/29/20 03:31 INR 1.58 (0.8-1.3) H 06/29/20 03:31 APTT 48.3 SECONDS (22.9-36.5) H 06/29/20 03:31 PTT Comment - 06/29/20 03:31 Sample Site Lb 06/29/20 01:36 ABG pH 7.500 (7.35-7.45) H 06/29/20 01:36 ABG pCO2 24.0 mmHg (35.0-45.0) L 06/29/20 01:36 ABG pO2 55.0 mmHg (80.0-100.0) L 06/29/20 01:36 ABG HCO3 18.7 mmol/L (22-26) L 06/29/20 01:36 ABG O2 Saturation 91.0 % (90-100) 06/29/20 01:36 ABG Base Excess -2.9 mmol/L (-2.0-2.0) L 06/29/20 01:36 Mason Test N/a 06/29/20 01:36 A-a Gradient 136.0 mmHg 06/29/20 01:36 FiO2 31.0 06/29/20 01:36 Blood Gas Comments Axel well ae 06/29/20 01:36 Sodium 151 mmol/L (136-145) H* 06/29/20 03:31 Corrected Sodium 154 mmol/L (136-145) H 06/29/20 03:31 Potassium 4.0 mmol/L (3.5-5.1) 06/29/20 03:31 Chloride 113 mmol/L (98-107) H 06/29/20 03:31 Carbon Dioxide 23.4 mmol/L (21-32) 06/29/20 03:31 BUN 41 mg/dL (7-18) H 06/29/20 03:31 Creatinine 3.01 mg/dL (0.70-1.30) H 06/29/20 03:31 Est GFR (MDRD) Af Amer 26 (>60) L 06/29/20 03:31 Est GFR (MDRD) Non-Af 22 (>60) L 06/29/20 03:31 Glucose 232 mg/dL (65-99) H 06/29/20 03:31 POC Glucose (mg/dL) 154 mg/dL (65-99) H 06/27/20 12:16 Hemoglobin A1c 6.8 % 06/23/20 08:25 Lactic Acid 6.0 mmol/L (0.4-2.0) H 06/29/20 05:59 Calcium 8.1 mg/dL (8.5-10.1) L 06/29/20 03:31 Corrected Calcium 9.4 mg/dL (8.5-10.1) 06/29/20 03:31 Magnesium 2.1 mg/dL (1.7-2.9) 06/27/20 04:39 Total Bilirubin 0.50 mg/dL (0.2-1.0) 06/29/20 03:31 AST 51 Units/L (15-37) H 06/29/20 03:31 ALT 28 Units/L (12-78) 06/29/20 03:31 Alkaline Phosphatase 77 Units/L (46-116) 06/29/20 03:31 Creatine Kinase 1410 Units/L (39-308) H 06/29/20 03:31 CK-MB (CK-2) 7.4 ng/mL (0-4.0) H* 06/29/20 03:31 CK/CKMB % Calc 0.5 % (<4) 06/29/20 03:31 Troponin I 0.35 ng/mL (0-1.5) 06/29/20 03:31 Total Protein 7.0 g/dL (6.4-8.2) 06/29/20 03:31 Albumin 2.4 g/dL (3.4-5.0) L 06/29/20 03:31 Globulin 4.6 g/dL (2.5-4.5) H 06/29/20 03:31 Albumin/Globulin Ratio 0.5 Ratio (1.1-2.1) L 06/29/20 03:31 Specimen Type Catherized urine 06/26/20 23:45 Urine Color Yellow (YELLOW) 06/26/20 23:45 Urine Appearance Clear (CLEAR) 06/26/20 23:45 Urine pH 5.0 (5.0 - 8.0) 06/26/20 23:45 Ur Specific [place] 1.025 (1.000-1.030) 06/26/20 23:45 Urine Protein 3+ (NEGATIVE) 06/26/20 23:45 Urine Glucose (UA) Negative (NEGATIVE) 06/26/20 23:45 Urine Ketones 3+ (NEGATIVE) 06/26/20 23:45 Urine Occult Blood 5+ (NEGATIVE) 06/26/20 23:45 Urine Nitrite Negative (NEGATIVE) 06/26/20 23:45 Urine Bilirubin Negative (NEGATIVE) 06/26/20 23:45 Urine Urobilinogen Normal (NORMAL) 06/26/20 23:45 Ur Leukocyte Esterase 1+ (NEGATIVE) 06/26/20 23:45 Urine RBC 30-50 /HPF (0-3) A 06/26/20 23:45 Urine WBC 5-10 /HPF (0-5) A 06/26/20 23:45 Ur Squamous Epith Cells Rare /HPF (NEGATIVE) 06/26/20 23:45 Urine Bacteria 2+ /HPF (NEGATIVE) 06/26/20 23:45 Granular Casts Few /LPF (NEGATIVE) 06/22/20 23:40 Urine Mucus Moderate /HPF (NEGATIVE) 06/22/20 23:40 Ur Culture Indicated? Yes/culture set up 06/26/20 23:45 SARS-CoV-2 (PCR) Positive (NEGATIVE) A 06/22/20 20:43 Opioid Opioid Risk Tool Age ([place] box if 16-45): No Total: 0 Total Score Risk Category: Low Risk Copyright: Ernesto TORO predicting aberrant behaviors Instructions Forms: Excuse From Work or School Precautions for COVID19 Patient Portal Social Distancing
[2020-06-29 11:05] VITALS: BP 144/61
[2020-06-29] MEDS ORDERED: ZOSYN VIAL 3.375 GRAMS 3.375 G in NS 100 ML IV + SPIKE MINIBAG* 100 ML IV SCH (14:00)
[2020-06-29] MEDS ORDERED: ADRENALINE CHL INJ IVP ONE ×2 (14:05→14:43)
[2020-06-29] MEDS ORDERED: ATROPINE SULFATE ABBOJECT IVP ONE ×2 (14:06→14:44)
[2020-06-29] MEDS ORDERED: SODIUM BICARBONATE 8.4% INJ ADULT IVP ONE (14:07)
[2020-06-29] MEDS ORDERED: NEXTERONE IV 150 MG PREMIX* 150 MG/100 ML BAG IV ONE (14:09)
[2020-06-29] MEDS ORDERED: ADRENALINE CHL INJ (ABBOJECT) IVP ONE ×4 (14:35→17:22)
== END 2020-06-29 10:31 | disposition expired | DRG 981 ==
LOC: MED/SURG → OBSVTOIN 20:00 → MED/SURG 06-23 17:48
PROVIDERS: ADMIT Internal Medicine; ATTEND Internal Medicine
PROC: [UNRECOGNIZED PROCEDURE] (2020-06-24 11:15)
DX: I46.9 Cardiac arrest, cause unspecified; E87.0 Hyperosmolality and hypernatremia; R26.89 Other abnormalities of gait and mobility; S72.001A Fracture of unspecified part of neck of right femur, initial encounter for closed fracture; B96.1 Klebsiella pneumoniae [K. pneumoniae] as the cause of diseases classified elsewhere; F03.90 Unspecified dementia, unspecified severity, without behavioral disturbance, psychotic disturbance, mood disturbance, and anxiety; F41.8 Other specified anxiety disorders; R94.31 Abnormal electrocardiogram [ECG] [EKG]; Z79.01 Long term (current) use of anticoagulants; U07.1 COVID-19; J12.89 Other viral pneumonia; R13.11 Dysphagia, oral phase; E11.65 Type 2 diabetes mellitus with hyperglycemia; I10 Essential (primary) hypertension